=== PATIENT | male | born 1985 | race Caucasian/White ===

== ENCOUNTER 2022-09-08 10:21 | Emergency (ER) | payer OTHER ==
[2022-09-08 10:38] VITALS: BP 130/63; PULSE 75; RESP 18; TEMP 98.1; BMI 24.6
[2022-09-08] MEDS ORDERED: TETRACAINE 0.5% HCL 0.6ML DROPPER.BOTTLE OU ONE (12:15)
[2022-09-08] MEDS ORDERED: TETRACAINE 0.5% OPHTH SOLN 2 ML BOTTLE ONE (12:15)
[2022-09-08] MEDS ORDERED: FLUORESCEIN NA 1 EA STRIP ONE (12:37)
[2022-09-08] MEDS ORDERED: FLUORESCEIN NA 1 EA STRIP OU ONE (12:41)
== END 2022-09-08 14:16 | disposition short-term general hospital (02) ==
LOC: JER 10:21 → JERFT 10:21
DX: S05.01XA Injury of conjunctiva and corneal abrasion without foreign body, right eye, initial encounter (principal); S05.02XA Injury of conjunctiva and corneal abrasion without foreign body, left eye, initial encounter; H16.003 Unspecified corneal ulcer, bilateral; H53.8 Other visual disturbances; T65.91XA Toxic effect of unspecified substance, accidental (unintentional), initial encounter; T26.92XA Corrosion of left eye and adnexa, part unspecified, initial encounter; T26.91XA Corrosion of right eye and adnexa, part unspecified, initial encounter; Z20.822 Contact with and (suspected) exposure to COVID-19
CPT/HCPCS: 0241U-QW; 99283-25